=== PATIENT | male | born 1960 | race Caucasian/White ===

== ENCOUNTER 2017-04-19 22:16 | Observation (INO) | payer MEDICAID ==
[2017-04-19 22:17] VITALS: BMI 26.7
[2017-04-19 23:58] LABS: VENOUS BLOOD GAS BASE EXCESS -2.6 mmol/L (0.0-2.0); VENOUS BLOOD GAS PCO2 43 mmHg (40-60); VENOUS BLOOD PH 7.34 (7.32-7.43)
--- NOTE | 2017-04-20 00:03 | ED PDOC ---
HPI: Back Time Seen by Provider: 04/19/17 22:48 Chief Complaint (Nursing): Flu-like Symptoms Chief Complaint (Provider): back pain and chills History Per: Patient Onset/Duration Of Symptoms: Days (5), Gradual, Persistent Additional Complaint(s): Subjective fever, chills, and rigors intermittent for 4 days, associate malaise fatigue and gen weakness Has back pain chronically but reports acute RIGHT buttock/leg shooting pain HIV + reports his last CD4 and Viral load "normal" PMD in [place] Past Medical History Reviewed: Historical Data, Nursing Documentation, Vital Signs Vital Signs: Last Vital Signs Temp 99.6 F 04/19/17 22:36 Pulse 67 04/19/17 22:36 Resp 18 04/19/17 22:36 BP 100/58 L 04/19/17 22:36 Pulse Ox 100 04/19/17 22:36 - Medical History PMH: Back Problems, CAD, Depression, Hepatitis (C), HIV, HTN, Hypercholesterolemia - Surgical History Other surgeries: RIGHT hand post traumatic - Family History Family History: States: No Known Family Hx - Social History Current smoker - smoking cessation education provided: Yes Alcohol: None Drugs: Cannabis, Opiates - Home Medications Home Medications: Ambulatory Orders Medication Instructions Recorded Aspirin 81 mg PO DAILY 06/23/14 Darunavir [Prezista] 800 mg PO DAILY 06/23/14 Emtricitabine/Tenofovir Diso 1 tab PO DAILY 06/23/14 [Truvada 200 MG-300 MG] Esomeprazole Magnesium [Nexium] 40 mg PO DAILY 06/23/14 Indomethacin 25 mg PO DAILY 06/23/14 Isoniazid 300 mg PO DAILY 06/23/14 Methadone HCl [Methadone HCl] 120 PO DAILY 06/23/14 Methadone [Methadone HCl] 10 mg PO HS 06/23/14 Pyridoxine HCl 50 mg PO DAILY 06/23/14 Ritonavir [Norvir] 100 mg PO DAILY 06/23/14 Tizanidine HCl [Tizanidine] 4 mg PO DAILY 06/23/14 Zolpidem Tartrate [Zolpidem 5 PO DAILY 06/23/14 Tartrate] Acetaminophen/Butalbital/Caf 1 - 2 tab PO Q6 PRN #20 tab 04/20/17 [Fioricet] - Allergies Allergies/Adverse Reactions: Allergies Allergy/AdvReac Type Severity Reaction Status Date / Time diphenhydramine Allergy DIZZINESS Verified 04/19/17 22:35 [From Benadryl] Review of Systems ROS Statement: Except As Marked, All Systems Reviewed And Found Negative Constitutional: Positive for: Fever, Chills, Weakness, Malaise Gastrointestinal: Negative for: Abdominal Pain Genitourinary Male: Positive for: Other (poor stream and difficulty with voiding ). Negative for: Dysuria Musculoskeletal: Positive for: Back Pain, Leg Pain Physical Exam - Reviewed Nursing Documentation Reviewed: Yes Vital Signs Reviewed: Yes - Physical Exam Appears: Positive for: Uncomfortable, In Acute Distress Head Exam: Positive for: ATRAUMATIC, NORMOCEPHALIC Skin: Positive for: Warm, Dry Eye Exam: Positive for: EOMI, PERRL ENT: Positive for: Other (tacky muc memb). Negative for: Pharyngeal Erythema, Tonsillar Exudate Neck: Positive for: Painless ROM, Supple Cardiovascular/Chest: Positive for: Regular Rate, Rhythm, Chest Non Tender. Negative for: Murmur Respiratory: Positive for: Normal Breath Sounds. Negative for: Accessory Muscle Use, Respiratory Distress Gastrointestinal/Abdominal: Positive for: Soft. Negative for: Tenderness Back: Positive for: Vertebral Tenderness (lumbar, +SLR RIGHT, +SI jt ttp) Extremity: Negative for: Deformity, Swelling Lymphatic: Negative for: Adenopathy Neurologic/Psych: Positive for: Alert, Oriented (x3), Other (Mild slurred speech ) - Laboratory Results Result Diagrams: 04/19/17 23:59 04/19/17 23:59 - ECG O2 Sat by Pulse Oximetry: 100 Disposition - Clinical Impression Clinical Impression: Back pain, Heroin abuse - Disposition Disposition: Transfer of Care Disposition Time: 00:00 Condition: STABLE Patient Signed Over To: Jm Short Handoff Comments: Pending ER workup, reassessment and final ER disposition
[2017-04-20] MEDS ORDERED: Iohexol 300 100 ML IJ ONE (00:07)
[2017-04-20] MEDS ORDERED: Sodium Chloride 0.9% 50 ML IV ONE (00:07)
--- NOTE | 2017-04-20 00:14 | ED PDOC ---
- Laboratory Results Result Diagrams: 04/19/17 23:59 04/19/17 23:59 - ECG O2 Sat by Pulse Oximetry: 100 (RA) Pulse Ox Interpretation: Normal Medical Decision Making Medical Decision Making: See ED-OBS tab for all further documentation Scribe Attestation: Documented by Lynsey Zhang, acting as a scribe for Jm Short MD Provider Scribe Attestation: All medical record entries made by the Scribe were at my direction and personally dictated by me. I have reviewed the chart and agree that the record accurately reflects my personal performance of the history, physical exam, medical decision making, and the department course for this patient. I have also personally directed, reviewed, and agree with the discharge instructions and disposition. Disposition Counseled Patient/Family Regarding: Studies Performed, Diagnosis, Need For Followup, Rx Given - Clinical Impression Clinical Impression: Back pain, Heroin abuse - POA Present On Arrival: None - Disposition Disposition: Routine/Home Disposition Time: 23:00 Condition: STABLE ED OBSERVATION Date of observation admission: 04/19/17 Time of observation admission: 23:00 - Observation admission statement Patient is being placed in observation because:: Back pain - Goals of Observation Goals of observation are:: Resolution of symptoms - Progress Note Progress Note: 04/20/17 Time: 0:00 --Patient is signed out by Dr. Juana Herndon MD to me, pending labs, CT, and reevaluation Time: :27 CT Abdomen/Pelvis: FINDINGS: Lower thorax: The bilateral lung bases are clear. ABDOMEN: Liver: The liver is enlarged and demonstrates steatosis. Gallbladder and bile ducts: The gallbladder is decompressed, without calcified stones. No significant intra- or extrahepatic biliary ductal dilation. Pancreas: Enhances homogeneously. No ductal dilation. No discrete mass. Spleen: No acute findings. Adrenals: No acute findings. Kidneys and ureters: No acute findings. No hydronephrosis or renal calculi. No discrete solid mass. A rounded area of fluid attenuation is identified within the upper pole of the left kidney measuring 4.3 cm in greatest dimension, statistically a cyst. PELVIS: Bladder: No acute findings. Reproductive: No acute findings. Appendix: The air filled appendix is of normal caliber (series 3, image 103) . ABDOMEN and PELVIS: Stomach and bowel: No obstruction. No mucosal thickening. Aerated stool is identified within the colon. Peritoneum: No significant fluid collection. No free air. Lymph nodes: No pathologically enlarged lymph nodes. Vasculature: Unremarkable. Bones: No acute fracture. Mild degenerative disease is identified in the lumbosacral spine, with displaced narrowing and slight endplate changes. IMPRESSION: Fatty infiltration of an enlarged liver. No acute intra-abdominal pathology, as detailed above. Time: 01:30 --Patient is resting. Vital signs stable. Time: 03:00 --Patient continues to rest. Vital signs stable. Time: 03:19 CT Lumbar Spine: FINDINGS: Vertebrae: No acute fracture. No erosions. Discs/spinal canal/neural foramina: Moderate degenerative disc disease at L5-S1 level. Early degenerative disease at remaining levels. Diffuse bony central canal stenosis. Disc herniations at L3-L4, L4-L5, L5-S1 levels. Severe central canal stenosis at L3-L4 level. Moderate central canal stenosis at L4-L5 level. Neuroforaminal narrowing at L3-L4, L4-L5, L5-S1 levels. No definite intraaxial dural mass or fluid collections. Soft tissues: Tiny umbilical hernia containing fat. No abscess. Kidneys and ureters: LEFT renal cyst. IMPRESSION: 1. No fracture. 2. If symptoms persist, consider MRI for further evaluation. 3. Incidental/non-acute findings are described above. --Labs reviewed, revealing no clinically significant abnormalities --Patient is medically stable for discharge Diagnosis: Back pain
[2017-04-20 00:21] LABS: BASO # 0.1 K/uL (0.0-0.2); BASO % 0.8 % (0.0-2.0); EOS # 0.2 K/uL (0.0-0.7); EOS % 1.9 % (0.0-4.0); HEMATOCRIT 46.3 % (35.0-51.0); LYMPH # 2.6 K/uL (1.0-4.3); LYMPH % 27.2 % (20.0-40.0); MEAN CORPUSCULAR HEMOGLOBIN 31.4 pg (27.0-31.0); MEAN CORPUSCULAR HGB CONC 34.1 g/dL (33.0-37.0); MEAN PLATELET VOLUME 9.8 fl (7.2-11.7); MONO # 0.7 K/uL (0.0-0.8); MONO % 7.7 % (0.0-10.0); NEUT % 62.4 % (50.0-75.0); NRBC % 0.2 % (0.0-0.0); RED CELL DISTRIBUTION WIDTH 13.7 % (11.5-14.5); WHITE BLOOD COUNT 9.6 K/uL (4.8-10.8)
[2017-04-20 00:34] LABS: ALB/GLOB RATIO 1.2 (1.0-2.1); ALKALINE PHOSPHATASE 97 U/L (38-126); ALT/SGPT 47 U/L (21-72); AST/SGOT 45 U/L (17-59); BILIRUBIN,TOTAL 0.7 mg/dl (0.2-1.3); BLOOD UREA NITROGEN 20 mg/dl (9-20); CALCIUM 9.5 mg/dL (8.4-10.2); CARBON DIOXIDE 21 mmol/L (22-30); CHLORIDE 104 mmol/L (98-107); GFR AFRICAN-AMERICAN > 60; GLUCOSE,RANDOM 127 mg/dL (75-110); MAGNESIUM 1.9 MG/DL (1.6-2.3); PHOSPHOROUS 4.1 mg/dl (2.5-4.5); POTASSIUM 3.6 MMOL/L (3.6-5.0); SODIUM 138 mmol/l (132-148); TOTAL PROTEIN 7.5 G/DL (6.3-8.2)
[2017-04-20 00:43] LABS: PARTIAL THROMBOPLASTIN TIME 33.3 Seconds (25.6-37.1)
[2017-04-20 01:01] LABS: THYROID STIMULATING HORMONE 0.81 mIU/ML (0.46-4.68)
--- NOTE | 2017-04-20 01:28 | CT ---
EXAM: CT Abdomen and Pelvis With Intravenous Contrast CLINICAL HISTORY: 56 years old, male; Signs and symptoms; Other: Weakness, back pain; Patient HX: Hep c; Additional info: Hiv sciatic/back pain R/O psoas abscess. Sent phy. Doc. With request TECHNIQUE: Axial computed tomography images of the abdomen and pelvis with intravenous contrast. All CT scans at this facility use one or more dose reduction techniques, viz.: automated exposure control; ma/kV adjustment per patient size (including targeted exams where dose is matched to indication; i.e. head); or iterative reconstruction technique. Coronal and sagittal reformatted images were created and reviewed. CONTRAST: 100 mL of [id number] administered intravenously. COMPARISON: No relevant prior studies available. FINDINGS: Lower thorax: The bilateral lung bases are clear. ABDOMEN: Liver: The liver is enlarged and demonstrates steatosis. Gallbladder and bile ducts: The gallbladder is decompressed, without calcified stones. No significant intra- or extrahepatic biliary ductal dilation. Pancreas: Enhances homogeneously. No ductal dilation. No discrete mass. Spleen: No acute findings. Adrenals: No acute findings. Kidneys and ureters: No acute findings. No hydronephrosis or renal calculi. No discrete solid mass. A rounded area of fluid attenuation is identified within the upper pole of the left kidney measuring 4.3 cm in greatest dimension, statistically a cyst. PELVIS: Bladder: No acute findings. Reproductive: No acute findings. Appendix: The air filled appendix is of normal caliber (series 3, image 103) . ABDOMEN and PELVIS: Stomach and bowel: No obstruction. No mucosal thickening. Aerated stool is identified within the colon. Peritoneum: No significant fluid collection. No free air. Lymph nodes: No pathologically enlarged lymph nodes. Vasculature: Unremarkable. Bones: No acute fracture. Mild degenerative disease is identified in the lumbosacral spine, with displaced narrowing and slight endplate changes. IMPRESSION: Fatty infiltration of an enlarged liver. No acute intra-abdominal pathology, as detailed above.
--- NOTE | 2017-04-20 03:19 | CT ---
EXAM: CT Lumbar Spine With Intravenous Contrast CLINICAL HISTORY: 56 years old, male; Pain; Other: Rt sciatic pain, rt buttock shooting pain; Patient HX: Additional lumbar spine, axial, cor, and sag sent with CT abd/pel study; Additional info: Right sciatic pain hiv. R/O psoas abcess TECHNIQUE: Axial computed tomography images of the lumbar spine with intravenous contrast. All CT scans at this facility use one or more dose reduction techniques, viz.: automated exposure control; ma/kV adjustment per patient size (including targeted exams where dose is matched to indication; i.e. head); or iterative reconstruction technique. Coronal and sagittal reformatted images were created and reviewed. CONTRAST: 100 mL of administered intravenously. COMPARISON: No relevant prior studies available. FINDINGS: Vertebrae: No acute fracture. No erosions. Discs/spinal canal/neural foramina: Moderate degenerative disc disease at L5-S1 level. Early degenerative disease at remaining levels. Diffuse bony central canal stenosis. Disc herniations at L3-L4, L4-L5, L5-S1 levels. Severe central canal stenosis at L3-L4 level. Moderate central canal stenosis at L4-L5 level. Neuroforaminal narrowing at L3-L4, L4-L5, L5-S1 levels. No definite intra-axial dural mass or fluid collections. Soft tissues: Tiny umbilical hernia containing fat. No abscess. Kidneys and ureters: LEFT renal cyst. IMPRESSION: 1. No fracture. 2. If symptoms persist, consider MRI for further evaluation. 3. Incidental/non-acute findings are described above.
[2017-04-20 05:30] VITALS: BP 119/75; PULSE 64; RESP 16; TEMP 98.5
[2017-04-20 05:40] VITALS: O2SAT 100
--- NOTE | 2017-04-20 20:51 | CARD ---
APPROVED REPORT EKG Measurement Heart [id number] <Conclusion> Sinus bradycardia Early repolarization Otherwise normal ECG
== END 2017-04-20 04:30 | disposition home or self-care (01) ==
LOC: H.ER 22:16 → H.EROBSV 23:00
PROVIDERS: ADMIT Emergency Medicine; ATTEND Emergency Medicine
DX: M54.9 Dorsalgia, unspecified (principal); F11.10 Opioid abuse, uncomplicated; B20 Human immunodeficiency virus [HIV] disease; I10 Essential (primary) hypertension; F17.200 Nicotine dependence, unspecified, uncomplicated; I25.10 Atherosclerotic heart disease of native coronary artery without angina pectoris; Z86.59 Personal history of other mental and behavioral disorders; B19.20 Unspecified viral hepatitis C without hepatic coma
CPT/HCPCS: 72132; 74177; 80053; 82803; 82948; 83735; 84100; 84443; 84484; 85025; 85610; 85730; 86850; 86900; 87040; 93005; 96374; 99283; G0378; J1885; Q9967